=== PATIENT | female | born 1955 | race Caucasian/White ===

== ENCOUNTER 2018-06-22 01:31 | Inpatient (IN) | payer BC, OTHER ==
[2018-06-22] MEDS ORDERED: Ondansetron HCl/PF 4 MG/2 ML Vial ONE (01:51)
[2018-06-22] MEDS ORDERED: Morphine 4 MG/ML VIAL ONE ×2 (01:51→15:39)
[2018-06-22] MEDS ORDERED: Dextrose 50% Abboject 50 ML SYRINGE SLOW IVP PRN (02:30)
[2018-06-22] MEDS ORDERED: Ondansetron HCl/PF 4 MG/2 ML Vial IVP PRN ×2 (02:30→19:19)
[2018-06-22] MEDS ORDERED: Ondansetron ODT 4 MG TAB PO PRN (02:30)
[2018-06-22] MEDS ORDERED: Dextrose 5% in Water 1,000 ML IV PRN (02:30)
[2018-06-22 02:57] LABS: #Eosinphils 0.1 thou/uL (0.0-0.7); #Lymphocytes 1.7 thou/uL (1.20-3.40); #Monocytes 0.4 thou/uL (0.11-0.59); #Neutrophils 7.3 thou/uL (1.40-6.50); %Basophils 0.3 % (0.0-1.0); %Eosinophils 1.1 % (0.0-10.0); %Lymphocytes 17.4 % (21.0-51.0); %Neutrophils 77.1 % (42.0-75.0); Hemoglobin 13.9 g/dL (12.0-16.0); Mean Corpuscular HGB CONC 32.5 g/dL (32.0-36.0); Mean Corpuscular Hemoglobin 32.6 pg (27.0-31.0); Mean Platelet Volume 7.5 fL (7.4-10.4); Platelet Count 302 thou/uL (130-400); RBC Distribution Width 12.6 % (11.5-14.5); Red Blood Cell (RBC) Count 4.25 mill/uL (4.20-5.40); White Blood Cell (WBC) Count 9.5 thou/uL (4.8-10.8)
[2018-06-22 02:59] LABS: PTT 34.3 SEC (22.9-36.1); Prothrombin Time 12.8 SEC (12.0-14.7)
[2018-06-22] MEDS ORDERED: traMADol HCl 50 MG TAB PO SCH (03:00)
[2018-06-22] MEDS ORDERED: Acetaminophen 500 MG TAB PO SCH (03:00)
[2018-06-22 03:11] LABS: ALT (SGPT) 13 U/L (8-55); AST (SGOT) 16 U/L (5-34); Albumin 4.3 g/dL (3.4-4.8); Alkaline Phosphatase 59 U/L (40-150); Anion Gap 13 mmol/L (10-20); BUN (Urea Nitrogen) 10 mg/dL (9.8-20.1); Bilirubin, Total 0.3 mg/dL (0.2-1.2); Calc. Creatinine Clearance 0 mL/min (70-130); Calcium 9.4 mg/dL (7.8-10.44); Carbon Dioxide 23 mmol/L (23-31); Chloride 110 mmol/L (98-107); Estimated GFR-MDRD 74; Globulin 2.9 g/dL (2.4-3.5); Glucose 110 mg/dL (80-115); Protein, Total 7.2 g/dL (6.0-8.3); Sodium 142 mmol/L (136-145)
[2018-06-22 03:15] LABS: CKMB 1.8 ng/mL (0-6.6); Troponin I Less than 0.010 ng/mL (< 0.028)
[2018-06-22 04:58] VITALS: BMI 27.3
[2018-06-22] MEDS: Sodium Chloride 0.9% 1,000 ML IV SCH ×3 (05:07→20:44)
[2018-06-22] MEDS: Acetaminophen 500 MG TAB PO SCH ×4 (05:07→23:07)
[2018-06-22] MEDS: traMADol HCl 50 MG TAB PO SCH ×4 (05:07→23:07)
--- NOTE | 2018-06-22 07:04 | HP ---
DATE OF ADMISSION: 06/22/2018 ATTENDING PHYSICIAN: Dr. Patel. TRAUMA ACTIVATION: Not applicable. HISTORY OF PRESENT ILLNESS: Ms. Lexi Ruggiero is a 63-year-old female with past medical history of cor onary artery disease who presented to [facility] status post mechanical fall. Per patient, she wa s taking groceries in and out of the house when she slipped and fell on a ramp sliding down the ramp, twisting her left ankle and landing on her left side. She had immediate onset of left ankle deformi ty and pain. She was evaluated in the emergency room and found to have an isolated left ankle fractu re. The patient denies head trauma or loss of consciousness. She denies pain anywhere else. Orthop edic surgery has been notified and Trauma Services was asked to admit. Upon my evaluation, the patie nt has a chief complaint of left lower extremity pain. Pain is worsened with movement and relieved w ith pain medication and rest. ALLERGIES: The patient denies. HOME MEDICATIONS: Synthroid 75 mcg, aspirin 81 mg. PAST MEDICAL HISTORY: Hypothyroidism, coronary artery disease. PAST SURGICAL HISTORY: Status post cardiac catheterization in the 80s. SOCIAL HISTORY: Patient works for [employer]. She denies alcohol use. She is a half pack to 3/4 pack per day smoker x40 years. Denies illicit drug use. FAMILY HISTORY: Significant for mother with diabetes and a father with coronary artery disease and h ypertension. REVIEW OF SYSTEMS: Ten point review of systems was performed and negative except as indicated in the HPI. PHYSICAL EXAMINATION: VITAL SIGNS: On presentation, temperature 98.9, pulse 72, respirations 22, O2 sat 98% on room air, b lood pressure 143/68. GENERAL: Well-developed female, in no acute distress. HEAD: Normocephalic, atraumatic. EYES: Pupils are PERRLA. Extraocular movements are intact. ENT: Poor dentition. NECK: Supple. Trachea is midline. There is no midline tenderness to palpation. CHEST: Atraumatic, nontender to palpation. Normal work of breathing, symmetric rise. LUNGS: Clear to auscultation bilaterally. CARDIOVASCULAR: Regular rate and rhythm. GASTROINTESTINAL: Abdomen is atraumatic, soft, nontender, nondistended. MUSCULOSKELETAL: Pelvis is stable. EXTREMITIES: Bilateral upper extremities within normal limits. Right lower extremity within normal limits. Left lower extremity with obvious ecchymosis of the left ankle and swelling. Range of motio n is limited secondary to pain. She is neurovascularly intact distal to the side of her injury. NEUROLOGIC: GCS is 15. No focal deficit is noted. LABORATORY DATA: Pending. IMAGING: EKG pending. Chest x-ray with coarse interstitial markings with no obvious traumatic injur y. X-ray of the tibia and fibula, this demonstrates a distal tibia and fibula fracture, official candido d is pending. X-ray of the ankle demonstrates the same. Official read is pending. ASSESSMENT: 1. Status post mechanical fall. 2. Left ankle fracture. 3. Acute traumatic pain. 4. History of hypothyroidism. 5. History of coronary artery disease. PLAN: Follow up laboratory findings and EKG. Orthopedic Surgery has been notified and plans for ope rative intervention later this morning. Gentle IV fluid hydration. The patient should be n.p.o. Po stoperative PT. Perioperative pain management with p.o. and IV analgesics. DVT and gastritis prophy laxis when appropriate. Plan for admission were discussed with the patient and family at bedside and all questions were answered at the time of this dictation. Trauma attending has been notified of ad mission.
--- NOTE | 2018-06-22 08:00 | CON ---
DATE OF CONSULTATION: 06/22/2018 REQUESTING PHYSICIAN: Trauma Services CONSULTING PHYSICIAN: Gibson Dawn M.D. CHIEF COMPLAINT: Left ankle fracture. HISTORY OF PRESENT ILLNESS: Ms. Ruggiero is a 63-year-old female who presented to [facility] after a mechanical fall last night. Per the patient, she was taking groceries in and out of her house when she slipped and fell on a ramp, sliding down the ramp twisting her left ankle and landing on her left side. She reports immediate left ankle deformity and pain. She denies any other injuries at the time of her fall. No head injury or loss of consciousness. She was evaluated in [facility] emergency department and found to have an isolated left bimalleolar ankle fracture. We have been c onsulted for this reason. Currently, at bedside, the patient reports a throbbing pain in her left an kle. She denies any pain elsewhere. She denies any numbness or tingling. She also denies any histo ry of orthopedic surgery to this extremity. Her pain is worsened with change in position. She is cu rrently in a splint. The pain is relieved with pain medication. ALLERGIES: Patient denies any allergies. PAST MEDICAL HISTORY: Hypothyroidism and viral cardiomyopathy with coronary artery disease. PAST SURGICAL HISTORY: Status post cardiac catheterization in the . SOCIAL HISTORY: The patient works for [employer]. She lives at home in [place]. She l zarina with her . She denies any alcohol use. She is a half a pack per day smoker for the last 40 years. She denies illicit drug use. FAMILY HISTORY: Reviewed and noncontributory. REVIEW OF SYSTEMS: Ten point review of systems conducted and otherwise negative except for as stated above. PHYSICAL EXAMINATION: VITAL SIGNS: Temperature 98.8, pulse of 80, respiratory rate of 16, blood pressure 120/69. GENERAL: The patient is awake and alert. She is oriented x3. No acute distress. Family at bedside . She is pleasant and cooperative with exam today. HEENT: Head is normocephalic, atraumatic. NECK: Supple. Trachea is midline. Breathing is nonlabored. EXTREMITIES: The left lower extremity was examined. There is a stirrup splint present. The patient is able to move toes. Capillary refill 2 seconds. Sensation intact. Skin is free of lesions and r ashes at splint edges. No other injuries noted to the remainder of the extremity exam. LABORATORY AND X-RAY FINDINGS: Including CBC shows a white blood cell count of 9.5, hemoglobin of 13 .3, hematocrit 42.6, platelet count 302. Radiographic findings including 3 views of the left ankle show evidence of a bimalleolar ankle fractu re. Mortise appears maintained. These x-ray findings were reviewed by myself. ASSESSMENT: Left ankle bimalleolar ankle fracture. PLAN: At this point plan of care discussed with the patient and her family at bedside today. This i ncludes open reduction internal fixation of the left ankle in order to restore mobility and function of her left lower extremity. Risks, benefits, and alternatives of surgery were discussed at length w ith the patient. They are amenable to surgery and would like to go forward with this. The patient w ill be seen by Cardiology prior to surgery due to the patient's cardiac history. We will plan to pro ceed with surgery this afternoon. The patient is n.p.o.
--- NOTE | 2018-06-22 08:01 | RAD ---
PORTABLE CHEST 1 VIEW: DATE: 06/22/18. TIME: 2:07 a.m. HISTORY: Preoperative evaluation. FINDINGS: The heart size is normal. The lungs are expanded without focal areas of consolidation, pneumothorace s, or pleural effusions. IMPRESSION: No acute process. POS: [facility]
[2018-06-22] MEDS: Famotidine 20 MG TAB PO SCH ×2 (08:35→20:43)
[2018-06-22] MEDS: Polyethylene Glycol 3350 17 GM Packet PO SCH (08:40)
[2018-06-22] MEDS: Senokot S 8.6-50 MG TAB PO SCH ×2 (08:40→20:44)
--- NOTE | 2018-06-22 08:46 | RAD ---
TWO VIEWS LEFT ANKLE: HISTORY: Fall. Pain. COMPARISON: None. FINDINGS: Distal fibula fracture. There also appears to be a medial malleolus/distal medial tibia fracture. T here is associated subluxation of the tibiotalar articulation. IMPRESSION: Fracture. POS: [facility]
--- NOTE | 2018-06-22 08:56 | RAD ---
LEFT ANKLE 3 VIEWS: Date: 06/22/18 HISTORY: 63-year-old female with left ankle fracture following splint material placement. FINDINGS: Medial and lateral malleolar fractures are noted through splint material. There is persistent asymmet ry of the tibiotalar joint and ankle mortise with widening of the tibiotalar space medially relative to laterally. IMPRESSION: Minimally displaced bimalleolar fractures. Abnormal widening of the medial tibiotalar joint, evidence for some persistent malalignment of the ankle mortise/tibiotalar joint. POS: OFF
--- NOTE | 2018-06-22 09:04 | RAD ---
LEFT TIBIA FIBULA 2 VIWS: HISTORY: Trauma. Pain. COMPARISON: None. FINDINGS: Distal fibula fracture is noted. Evaluation of the distal fibula is limited on this exam. IMPRESSION: Distal fibula fracture. POS: JE[facility]
[2018-06-22] MEDS ORDERED: Ketorolac Tromethamine 30 MG/ML VIAL IVP SCH ×2 (09:45→12:00)
[2018-06-22] MEDS ORDERED: PROPOFOL 200 MG/20 ML VIAL ONE (10:47)
[2018-06-22] MEDS ORDERED: PHENYLEPHRINE-NS 100 MCG/ML 10 ML SYRINGE ONE (10:47)
[2018-06-22] MEDS ORDERED: ePHEDrine/0.9% NaCl/PF SYRINGE 50 mg/10 ml ONE (10:47)
--- NOTE | 2018-06-22 12:55 | PRG ---
DATE OF SERVICE: 06/22/2018 CONSULTANTS: Orthopedic Surgery admitted to Trauma Surgery. SUBJECTIVE: Ms. Ruggiero presented overnight with a trimalleolar fracture from a fall. She was noted to have a remote history of some form of cardiac disease that is not well defined in the 1980s, therefore troponins were checked and negative. An echocardiogram was obtained this morning shows an EF of 50-55% with a diastolic dysfunction 1-3. She does have a left bundle branch block noted on EKG and we do not have any previous for comparison in our system. The patient is awaiting surgery. She is n.p.o. She is on pain medicine regimen. OBJECTIVE: VITAL SIGNS: Blood pressure 107/64, respirations are 16, temperature is 97.9, pulse is 56. She is breathing 16 times per minute and is on room air 93%. GENERAL: This is a 63-year-old female sitting up in bed in no acute distress. HEENT: Normocephalic, atraumatic. NECK: Trachea is midline. RESPIRATORY: No respiratory distress. CARDIOVASCULAR: Strong pulses. EXTREMITIES: She does have something noted to her left lower extremity. ABDOMEN: No abdominal pain is reported. PSYCHIATRIC: Normal mood and affect. MUSCULOSKELETAL: She has a deformity and pain to the left lower with something in place. She is able to move the distal extremities. NEURO: Otherwise, alert and oriented to person, place, time, and event. ASSESSMENT AND PLAN: 1. Left trimalleolar fracture. 2. Left bundle branch block, unknown new or old. 3. Grade I diastolic dysfunction. PLAN: 1. The patient is n.p.o. for operative management by Orthopedic Surgery today. 2. Reassess after surgery. 3. Pain control as needed. 4. Bowel regimen per protocol. 5. Diet will be n.p.o. until after surgery. 6. Activity: Nonweightbearing on the left lower. 7. Access for peripheral IVs. 8. Prophylaxis. Will be Pepcid, SCDs on the right. Hold chemical DVT prophylaxis secondary to operative procedure today. 9. Full code. 10. Disposition: Surgery raygoza. 11. Updated the patient at the bedside and answered all questions. This plan was developed with Dr. Zepeda and can be updated as needed. [facility]
[2018-06-22] MEDS ORDERED: CEFAZOLIN/Water 2 GM/20 ML SYRINGE ONE (16:27)
[2018-06-22] MEDS ORDERED: Bupivacaine PF 0.5% 30 ML VIAL ONE (16:33)
[2018-06-22] MEDS ORDERED: Neomycin-Polymyxin 1 ML AMP ONE (16:33)
[2018-06-22] MEDS ORDERED: Midazolam HCl 2 mg/2 ml Vial ONE (16:40)
[2018-06-22] MEDS ORDERED: Fentanyl 100 MCG/2 ML VIAL ONE (16:40)
[2018-06-22] MEDS: Ketorolac Tromethamine 30 MG/ML VIAL IVP SCH ×2 (17:45→20:42)
[2018-06-22] MEDS ORDERED: HYDROmorphone 2 MG/ML VIAL ONE (18:35)
--- NOTE | 2018-06-22 18:48 | RAD ---
THREE VIEWS OF THE LEFT ANKLE: 06/22/18 COMPARISON: 06/22/18 at 3:04 a.m. HISTORY: ORIF of ankle fracture. FINDINGS/IMPRESSION: Three limited intraoperative fluoroscopic views of the left ankle were submitted for interpretation. The patient is status post ORIF of the distal fibula with a plate and screws and of the tibia with a plate and screws. No perihardware lucency is seen. Alignment of the ankle mortise is normal. POS: [facility]
[2018-06-22] MEDS ORDERED: Promethazine HCl 25 MG/ML VIAL SLOW IVP PRN (19:19)
[2018-06-22] MEDS ORDERED: HYDROmorphone 2 MG/ML VIAL SLOW IVP PRN (19:19)
[2018-06-22] MEDS ORDERED: Promethazine HCl 25 MG/ML VIAL IM PRN (19:19)
[2018-06-23] MEDS: traMADol HCl 50 MG TAB PO PRN ×2 (00:33→10:22)
[2018-06-23] MEDS: CEFAZOLIN/Water 2 GM/20 ML SYRINGE SLOW IVP SCH ×2 (00:34→09:46)
[2018-06-23] MEDS: Ketorolac Tromethamine 30 MG/ML VIAL IVP SCH ×3 (03:50→15:05)
[2018-06-23] MEDS: Acetaminophen 500 MG TAB PO SCH ×2 (05:27→15:08)
[2018-06-23] MEDS: traMADol HCl 50 MG TAB PO SCH ×2 (05:27→15:07)
[2018-06-23] MEDS: Sodium Chloride 0.9% 1,000 ML IV SCH (05:28)
[2018-06-23] MEDS: Famotidine 20 MG TAB PO SCH (09:45)
[2018-06-23] MEDS: Senokot S 8.6-50 MG TAB PO SCH (09:46)
[2018-06-23] MEDS: Polyethylene Glycol 3350 17 GM Packet PO SCH (09:46)
--- NOTE | 2018-06-23 10:58 | OP ---
DATE OF PROCEDURE: 06/22/2018 PREOPERATIVE DIAGNOSIS: Left trimalleolar ankle fracture, closed. POSTOPERATIVE DIAGNOSIS: Left trimalleolar ankle fracture, closed. SURGICAL PROCEDURE: Open reduction with internal fixation of left medial and lateral malleoli. ANESTHESIA: General. SURGEON: Favian Chopra M.D. PATCH SETTER: Armand Lopez PA-C. TOURNIQUET TIME: Approximately 60 minutes at 300 mmHg. IMPLANTS: Synthes 2.7 mm variable angle LCP distal fibular plate, 7-hole left and a Synthes 3.5 mm h ook plate for the left medial malleolus. COMPLICATIONS: None. DRAINS: None. SPECIMEN: None. OUTCOME: Near anatomic alignment. INDICATIONS: Ms. Ruggiero is a 63-year-old lady who while bringing groceries into her house, slipped a nd fell on a ramp sustaining a twisting injury to left ankle. Upon arrival at [facility], she was fo und to have a trimalleolar ankle fracture. She was found to have very modest swelling and as such wa s admitted after splinting for anticipated open reduction internal fixation for this unstable and dis placed fracture. Informed consent has been obtained. I believe all questions have been answered. PROCEDURE: After the induction of general anesthesia, a timeout was performed followed by a sterile prep and drape of the left lower extremity. Next, the limb was exsanguinated with Esmarch bandage, t ourniquet inflated to 300 mmHg. A longitudinal incision was made from the tip of the lateral malleol us proximally. After skin was sharply incised, dissection was carried down bluntly exposing the late ral cortex of the distal fibula. She was found to have a very comminuted fracture with a fracture li ne extending proximally into the distal fibular diaphysis. This proximal fracture extension was firs t stabilized with 2 K-wires and then minimal soft tissue dissection was performed to expose the fract ure edges and the more distal fragments were reduced and held provisionally with K-wires. Next, a to chepe of 3 anterior to posterior lag screws were passed to get provisional stabilization of the fractur e. This was followed by application of a 7-hole 2.7 mm variable angle LCP distal fibular plate as a buttress device along the lateral cortex of the distal fibula. This was held in place with a combina tion of 2.7 mm cortical screws proximally and locking screws distally. Once the fibula was stabilize d and reduced, AP, lateral C-arm images showed acceptable alignment of the fracture. Next, attention was placed at the medial side of the ankle. A longitudinal incision was made starting at the tip of the medial malleolus and heading proximally. The fracture was then exposed. This was found to be a comminuted fracture that had a very oblique orientation and as such it was felt that 2 medial screws alone would not adequately stabilize the fracture. As such, a 3.5 mm hook plate was placed starting at the tip of the medial malleolus. This was held provisionally with a 3.5 mm cortical screw transv ersely across the tibia and then a 3.5 mm screw passed from the tip of the hook plate obliquely acros s the fracture line into the distal tibial metaphysis. This resulted in excellent compression across the fracture line. An additional proximal screw was then placed, getting good stabilization of the medial malleolus. AP lateral C-arm images were then obtained and saved and then both incisions irrig ated with bulb syringe and then closed in layers with 0 Vicryl deep, followed by 2-0 Vicryl and stapl es. A Xeroform gauze, Webril, and fiberglass posterior splint was applied to the ankle. Tourniquet was let down and then patient was transferred to recovery room in stable condition. There were no co mplications. She tolerated the procedure well.
[2018-06-23 12:32] VITALS: TEMP 98.6
[2018-06-23 13:21] VITALS: BP 95/60
--- NOTE | 2018-06-23 14:50 | DIS ---
DATE OF ADMISSION: 06/22/2018 DATE OF DISCHARGE: 06/23/2018 ADMITTING PHYSICIAN: Dr. Victorino Tubbs. DISCHARGE PHYSICIAN: Dr. Zepeda. CONSULTING PHYSICIANS: Dr. Chopra with Orthopedic Surgery and Dr. Zepeda with Trauma Surgery. PROCEDURES: ORIF of a left trimalleolar fracture. ADMITTING DIAGNOSIS: Left trimalleolar fracture. DISCHARGE DIAGNOSIS: Left trimalleolar fracture. DISCHARGE MEDICATIONS: 1. Continue levothyroxine at the home dose. 2. Aspirin 81 mg b.i.d. 3. Tramadol 50 mg q.6 as needed for pain. 4. Tylenol 650-1000 g q.4 as needed for pain. 5. Ibuprofen 600 mg q.6 as needed for pain. HOSPITAL COURSE: Ms. Ruggiero sustained a mechanical fall resulting in the left trimalleolar fracture. She was admitted to the Trauma Service on the surgical raygoza with stable vital signs and neurologica lly intact. Orthopedic surgery was consulted and recommended ORIF. On hospital day number 1, the pa artur was taken to the operative suite. She had an effective repair. [facility] On hospital day number 1, overnight did experience some pain. She was requiring some IV pain medication and even at one time required 2 liters of oxygen nasal cannula, possibly due to the pain meds. She does have a history of smoking, but no pulmonary disease in the past. She has normal ADLs. The patient remained stable. She is ready for discharge per Orthopedics and herself. She wa s started on oral pain medication and tolerated well. She is on a nasal cannula with no distress, no respiratory distress and SpO2 is 97%. The patient is tolerating a diet. She is working with PT and she has support at home. The patient will be sent home with outpatient referral to PT. She is nonw eightbearing on the leg and this is explained to the patient. I have encouraged smoking cessation. I have explained that aspirin to be taken b.i.d. to reduce the thromboembolic events and the patient and family both verbalized understanding. OBJECTIVE: On the date of discharge, VITAL SIGNS: Temperature is 98.6, pulse is 75, respiratory rate is 14, O2 sat is 96 on room air and blood pressure 95/58. GENERAL: This is a 63-year-old female sitting up in bed, in no acute distress. HEENT: Normocephalic, atraumatic. Trachea is midline. NECK: No JVD is appreciated. RESPIRATORY: Equal rise and fall. No respiratory distress is appreciated. CARDIOVASCULAR: Regular rate and rhythm and strong pulses noted. She does have sensation in the lef t lower extremity distal to her injury that is in a cast. ABDOMEN: Soft and nontender. EXTREMITIES: Able to move all of her extremities and the only deformity is noted in the cast that is elevated. SKIN: [place], warm and dry. PSYCHIATRIC: Normal mood and affect. NEUROLOGIC: Alert and oriented to person, place, time and event. No gross deficits are appreciated. DISPOSITION: Discharging to home. FOLLOWUP: Will be with Dr. Chopra in 7-10 days and her primary care physician in 7-10 days. DISCHARGE INSTRUCTIONS: Medications as above and specifically aspirin for DVT prophylaxis. I have discussed return precautions with the patient. She has verbalized understanding. She states that she does feel ready for discharge and feels safe to go home. I have coordinated care with the O rthopedic team, the trauma team at the bedside RNs. I have answered all questions with the patient a t the bedside. Greater than 30 minutes was taken in preparation and documentation of this patient's discharge.
--- NOTE | 2018-07-01 12:18 | EKG ---
Test Reason : Blood Pressure : / mmHG Vent. Rate : 066 BPM Atrial Rate : 066 BPM P-R Int : 154 ms QRS Dur : 138 ms QT Int : 472 ms P-R-T Axes : 063 037 070 degrees QTc Int : 494 ms Normal sinus rhythm Left bundle branch block Abnormal ECG Confirmed by SREE CARPENTER ([id number]), sound editor YOHANA ROWLAND ([id number]) on 07/01/2018 12:17:59 PM Referred By: JAYDEN Confirmed By:SREE CARPENTER
== END 2018-06-23 15:50 | disposition home or self-care (01) | DRG 494 ==
LOC: ERS 01:31 → SURG A 02:14
PROVIDERS: ADMIT Surgery; ATTEND Surgery
PROC: 0QSH04Z Reposition Left Tibia with Internal Fixation Device, Open Approach (ICD-10-PCS; principal; 2018-06-22)
PROC: 0QSK04Z Reposition Left Fibula with Internal Fixation Device, Open Approach (ICD-10-PCS; 2018-06-22)
DX: S82.852A Displaced trimalleolar fracture of left lower leg, initial encounter for closed fracture (principal); I25.10 Atherosclerotic heart disease of native coronary artery without angina pectoris; E03.9 Hypothyroidism, unspecified; F17.210 Nicotine dependence, cigarettes, uncomplicated; I44.7 Left bundle-branch block, unspecified; Z79.82 Long term (current) use of aspirin; W01.0XXA Fall on same level from slipping, tripping and stumbling without subsequent striking against object, initial encounter; Y92.008 Other place in unspecified non-institutional (private) residence as the place of occurrence of the external cause
CPT/HCPCS: 36415; 71045; 76001; 80053; 82553; 84484; 85025; 85610; 85730; 90471; 90732; 93005; 93306; C1713; G0009; G8978-GP-CL; G8979-GP-CJ; G8987-GO-CJ; G8988-GO-CI; J1170; J1885; J2250; J2270; J2405; J2704; J3010; S0020

== ENCOUNTER 2018-11-15 07:36 | Outpatient (CLI) | payer BC, OTHER ==
[2018-11-15] MEDS ORDERED: Sodium Chloride 0.9% 15 ML NEB ONE (09:00)
--- NOTE | 2018-11-15 13:13 | HP ---
HISTORY OF PRESENT ILLNESS: Ms. Lexi Ruggiero is a very pleasant 63-year-old referred to the Wound Center for evaluation of a nonhealing surgical wound of the left lateral lower leg subsequent to ORIF of the left medial and lateral malleoli on 06/22/2018, by Dr. Chopra. The patient states that when the titi were discontinued, the presence of a nonhealing surgical wound was noted. The patient states that she has been dressing her wound with a dry bandage. She states that her wound was debrided by Dr. Chopra yesterday and at this time, Ms. Ruggiero was referred to the Wound Center for further evaluation and treatment. The patient's wound was debrided in the office by Dr. Chopra. The patient states she has not received any antibiotics for the treatment of her wound. The patient was referred to the Wound Center for possible treatment with the wound VAC. PAST MEDICAL HISTORY: 1. Hypothyroidism. 2. History of viral cardiomyopathy. PAST SURGICAL HISTORY: 1. ORIF of left medial and lateral malleoli on 06/22/2018. 2. Appendectomy. 3. Oophorectomy. MEDICATIONS: 1. Levothyroxine. 2. Aspirin 81 mg. 3. Tylenol p.r.n. 4. Multivitamin. ALLERGIES: LATEX. SOCIAL HISTORY: Social history is significant for tobacco use of 1 pack of cigarettes per day for 50 years. The patient denies any history of EtOH use. FAMILY HISTORY: Family history is significant for diabetes mellitus. The patient states that her mother and sister were both diagnosed with diabetes mellitus. Family history is also significant for coronary artery disease. The patient's father was diagnosed with coronary artery disease. PHYSICAL EXAMINATION: VITAL SIGNS: Temperature 97.7, pulse 75, and blood pressure 143/65. GENERAL: A 63-year-old female, sitting on chair in examination room, in no acute distress. HEENT: Normocephalic and atraumatic. NECK: No nuchal rigidity. CHEST: Clear to auscultation. CV: Regular rate and rhythm. ABDOMEN: Soft. EXTREMITIES: Two nonhealing surgical wounds of the left lateral lower leg are present. Hardware is exposed within the margins of the inferior nonhealing surgical wound. No granulation tissue was visible within the margins of either wound. No purulent drainage is associated with either wound. No erythema of the skin surrounding either wound is present. No maceration of the skin of the periwound of either wound is noted. A dorsalis pedis pulse is palpable on the left. No significant edema of the left foot or lower leg is appreciated on exam today. NEURO: Grossly nonfocal. ASSESSMENT AND PLAN: 1. Two nonhealing surgical wounds of left lateral lower leg subsequent to open reduction and internal fixation of left medial and lateral malleoli. Arrangements will be made for the initiation of negative pressure therapy with dressing changes of the wound VAC 3 times per week with the assistance of Home Health. I will see Ms. Ruggiero again in 1 week until the wound VAC becomes available, the patient is to perform dressing changes of Xeroform gauze, 4 x 4's, and Kerlix on a daily basis after cleansing and irrigation. No antibiotics will be prescribed today based upon the appearance of the wound. The patient understands and is in agreement with the preceding treatment plan. 2. Hypothyroidism. 3. History of viral cardiomyopathy. Job ID: [id number]
== END 2018-11-15 07:37 | disposition home or self-care (01) ==
LOC: WCC 07:36
PROVIDERS: ATTEND Family Medicine
DX: T81.89XA Other complications of procedures, not elsewhere classified, initial encounter (principal); E03.9 Hypothyroidism, unspecified; Z98.890 Other specified postprocedural states; Z86.79 Personal history of other diseases of the circulatory system
CPT/HCPCS: 97602; 99203; A4218; G0463

== ENCOUNTER 2018-11-22 08:38 | Outpatient (CLI) | payer BC, OTHER ==
--- NOTE | 2018-11-22 09:47 | PRG ---
DATE OF SERVICE: 11/22/2018 HISTORY: Ms. Lexi Ruggiero is a very pleasant 63-year-old referred to the Wound Center for evaluation of a nonhealing surgical wound of the left lateral lower leg subsequent to ORIF of the left medial and lateral malleoli on 06/22/[address] Chopra. The patient stated that when the titi were discontinued, the presence of a nonhealing surgical wound was noted. The patient stated that she had been dressing her wound with a dry bandage prior to being seen in the Wound Center. She stated that one day prior to her initial presentation to the Wound Center, her wound was debrided by Dr. Chopra and at this time, the patient was referred to the Wound Center for further evaluation and treatment. The patient stated that her wound was debrided in the office by Dr. Chopra. PHYSICAL EXAMINATION: VITAL SIGNS: Temperature 98.2, pulse 78, respirations 21, blood pressure 127/59. EXTREMITIES: Two nonhealing surgical wounds of the left lateral lower leg are present. No granulation tissue is visible within the margins of either wound. No purulent drainage is associated with either wound. No erythema of the skin surrounding either wound is present. No maceration of the skin of the periwound of either wound is noted. A dorsalis pedis pulse is palpable on the left. No significant edema of the left foot or lower leg is present on exam today. ASSESSMENT AND PLAN: 1. Two nonhealing surgical wounds of left lateral lower leg subsequent to open reduction and internal fixation of left medial and lateral malleoli. Negative pressure therapy will be initiated today with dressing changes of the wound VAC 3 times per week with the assistance of Home Health. I will see Ms. Ruggiero again in approximately 2 weeks. 2. Hypothyroidism. 3. History of viral cardiomyopathy. Job ID: [id number]
[2018-11-22] MEDS ORDERED: Sodium Chloride 0.9% 15 ML NEB ONE (15:56)
[2018-11-22] MEDS ORDERED: Lidocaine 2% PF 100 mg/5 ml Syringe ONE (15:56)
== END 2018-11-22 08:39 | disposition home or self-care (01) ==
LOC: WCC 08:38
PROVIDERS: ATTEND Family Medicine
DX: T81.89XD Other complications of procedures, not elsewhere classified, subsequent encounter (principal); E03.9 Hypothyroidism, unspecified; Z86.19 Personal history of other infectious and parasitic diseases
CPT/HCPCS: 97602; A4218; J2001

== ENCOUNTER 2018-12-06 10:25 | Outpatient (CLI) | payer BC, OTHER ==
--- NOTE | 2018-12-06 10:18 | PRG ---
DATE OF SERVICE: 12/06/2018 HISTORY: Ms. Lexi Ruggiero is a very pleasant 63-year-old, referred to the [facility] for evaluation of a nonhealing surgical wound of the left lateral lower leg subsequent to ORIF of the left medial and lateral malleoli on 06/22/[address] Chopra. The patient stated that when the titi were discontinued, a presence of a nonhealing surgical wound was noted. The patient stated that she had been dressing her wound with a dry bandage prior to being seen in the [facility]ound Center. She stated that one day prior to her initial presentation to the [facility]ound Center, her wound was debrided by Dr. Chopra and at this time, the patient was referred to the [facility]ound Center for further evaluation and treatment. The patient stated that her wound was debrided in the office by Dr. Chopra. At the time of the patient's last visit, negative pressure therapy was initiated. The patient states she has been receiving dressing changes of the wound VAC 3 times per week with the assistance of home health. PHYSICAL EXAMINATION: VITAL SIGNS: Temperature 97.7, pulse 70, respirations 19, blood pressure 120/56. EXTREMITIES: Two nonhealing surgical wounds of the left lateral lower leg are present. Both wounds have improved in their appearance since the patient's last visit. The larger wound measures approximately 5.8 x 1.5 cm. No purulent drainage is associated with either wound. No erythema of the skin surrounding either wound is present. No maceration of the skin of the periwound of either wound is noted. No significant edema of the left foot or lower leg is present on exam today. ASSESSMENT AND PLAN: 1. Two nonhealing surgical wounds of left lateral lower leg subsequent to open reduction and internal fixation of the left medial and lateral malleoli. Negative pressure therapy will be continued with dressing changes of the wound VAC 3 times per week with the assistance of home health. I will see Ms. Ruggiero again in 4 weeks. The patient states she has an appointment with Dr. Chopra on 12/20/2018 at 9:00 a.m. 2. Hypothyroidism. 3. History of viral cardiomyopathy. Job ID: [id number]
[2018-12-06] MEDS ORDERED: Sodium Chloride 0.9% 15 ML NEB ONE (20:02)
[2018-12-06] MEDS ORDERED: Lidocaine 2% PF 100 mg/5 ml Syringe ONE (20:02)
== END 2018-12-06 10:26 | disposition home or self-care (01) ==
LOC: WCC 10:25
PROVIDERS: ATTEND Family Medicine
DX: T81.89XD Other complications of procedures, not elsewhere classified, subsequent encounter (principal); E03.9 Hypothyroidism, unspecified; Z86.79 Personal history of other diseases of the circulatory system
CPT/HCPCS: A4218; J2001

== ENCOUNTER 2018-12-22 05:48 | Day surgery (SDC) | payer BC, OTHER ==
[2018-12-21 11:08] VITALS: BMI 24.2
[2018-12-22] MEDS ORDERED: Midazolam HCl 2 mg/2 ml Vial ONE (06:12)
[2018-12-22] MEDS ORDERED: Fentanyl 100 MCG/2 ML VIAL ONE (06:12)
[2018-12-22] MEDS ORDERED: Lidocaine 1% (PF) 30 ML VIAL ONE (07:07)
--- NOTE | 2018-12-22 08:56 | RAD ---
LEFT ANKLE TWO VIEWS: INDICATIONS: Intraoperative imaging, left ankle hardware. TECHNIQUE: A single AP fluoroscopic view taken in the OR is presented. FINDINGS/IMPRESSION: This single AP view shows plate and screws transfixing the distal tibia along its medial side. There are three screws seen in the distal fibula. POS: [facility]
--- NOTE | 2018-12-22 09:11 | OP ---
DATE OF PROCEDURE: 12/22/2018 PREOPERATIVE DIAGNOSIS: Left lateral wound dehiscence, status post open reduction and internal fixation of bimalleolar ankle fracture. POSTOPERATIVE DIAGNOSIS: Left lateral wound dehiscence, status post open reduction and internal fixation of bimalleolar ankle fracture. PROCEDURES PERFORMED: 1. Removal of hardware (deep), left lateral ankle. 2. Irrigation and debridement of left ankle wound. 3. Application of wound VAC. ANESTHESIA: General. TOURNIQUET TIME: 15 minutes at 300 mmHg. SPECIMEN: Explanted plate and screws discarded. COMPLICATIONS: None. DRAINS: Wound VAC x1. OUTCOME: Removal of hardware with application of wound VAC. INDICATIONS: Ms. Ruggiero is a 63-year-old lady, status post significant bimalleolar ankle fracture treated with open reduction and internal fixation. The patient does have a long history of cigarette smoking as well. Unfortunately in the postoperative period, she did have a wound dehiscence. We attempted to treat this with a wound VAC, however, on the most recent dressing change, she was found to have some exposed hardware. Given this new finding, we are now proceeding with hardware removal and re-application of wound VAC. Informed consent has been obtained. I believe all questions were answered. DESCRIPTION OF PROCEDURE: The patient was brought to the operating room and a time-out performed followed by induction of general anesthesia. Leg was then exsanguinated with Esmarch bandage, tourniquet inflated to 300 mmHg. Following the previous scar, a sharp incision was made through the skin all the way down to the level of the plate, taking care to minimize any undermining of the intact skin. Once incision was made, periosteal elevator was used to elevate the soft tissue off the plate. Next, all of the screws were removed from the plate and the plate was removed without difficulty. At this point, a debridement of the skin edges were performed with a scalpel removing some of the fibrinous exudate trying to get tissue back to bleeding tissue. Some loose tissue from around the plate were also excised. The care was taken not to completely remove the periosteum from the distal fibula in hopes that it would be a base for granulation tissue formation. Once the devitalized tissue was sharply debrided, the wound was thoroughly irrigated with normal saline using Pulsavac and 3 L of normal saline and then a wound VAC was applied. At the completion of wound VAC application, the patient was transferred to recovery room in stable condition. There were no complications. She tolerated the procedure well. Job ID: [id number]
[2018-12-22] MEDS ORDERED: PHENYLEPHRINE-NS 100 MCG/ML 10 ML SYRINGE ONE (16:58)
[2018-12-22] MEDS ORDERED: Ondansetron PF 4 MG/2 ML Vial ONE (16:58)
[2018-12-22] MEDS ORDERED: Dexamethasone 20 MG/5 ML VIAL ONE (16:58)
[2018-12-22] MEDS ORDERED: PROPOFOL 200 MG/20 ML VIAL ONE (16:58)
[2018-12-22] MEDS ORDERED: Lidocaine 1% PF 5 ML VIAL ONE (16:58)
== END 2018-12-22 11:20 | disposition home or self-care (01) ==
LOC: SDC 05:48
PROVIDERS: ATTEND Orthopaedic Surgery
PROC: 0SPG04Z Removal of Internal Fixation Device from Left Ankle Joint, Open Approach (ICD-10-PCS; principal; 2018-12-22)
DX: T81.31XA Disruption of external operation (surgical) wound, not elsewhere classified, initial encounter (principal); F17.210 Nicotine dependence, cigarettes, uncomplicated; I10 Essential (primary) hypertension; Z79.82 Long term (current) use of aspirin; Z79.899 Other long term (current) drug therapy; Z91.040 Latex allergy status; Z98.890 Other specified postprocedural states
CPT/HCPCS: 76000; J1100; J2001; J2250; J2405; J2704; J3010

== ENCOUNTER 2019-01-03 11:02 | Outpatient (CLI) | payer BC, OTHER ==
--- NOTE | 2019-01-03 10:24 | PRG ---
DATE OF SERVICE: 01/03/2019 SUBJECTIVE: Ms. Lexi Ruggiero is a very pleasant 63-year-old, referred to the [facility]ound Center for evaluation of a nonhealing surgical wound of the left lateral lower leg subsequent to ORIF of the left medial and lateral malleoli on 06/22/[address] Chopra. Since the patient's last visit, Ms. Ruggiero states that she has undergone the removal of all hardware consisting of a plate and screws removed from the left lower leg. The patient continues to receive negative pressure therapy with dressing changes of the wound VAC three times per week with the assistance of Home Health. OBJECTIVE: VITAL SIGNS: Temperature 97.6, pulse 82, blood pressure 119/57. EXTREMITIES: One wound of the left lateral lower leg is present, which measures approximately 11.2 x 2.2 cm. Granulation tissue is present within the wound margins. Nonviable tissue present within the wound margins was debrided with an excisional full-thickness debridement with the use of a curette. No purulent drainage is associated with the wound. No erythema of the skin surrounding the wound is present. No maceration of the skin of the periwound is noted. A dorsalis pedis pulse is easily palpable on the left. No significant edema of the left foot or lower leg is present on exam today. ASSESSMENT AND PLAN: 1. Nonhealing surgical wound of left lateral lower leg subsequent to open reduction and internal fixation of the left medial and lateral malleoli. As stated above, all hardware has been removed from the left lateral lower leg. Negative pressure therapy will be continued with dressing changes of the wound VAC three times per week with the assistance of Home Health. The patient has an appointment with Dr. Chopra in the near future. I will see Ms. Ruggiero again in 2 to 3 weeks. 2. Hypothyroidism. 3. History of viral cardiomyopathy. Job ID: [id number]
[~2019-01-03 11:02] MED LIST: Sodium Chloride 0.9% 15 ML NEB ONE
== END 2019-01-03 11:03 | disposition home or self-care (01) ==
LOC: WCC 11:02
PROVIDERS: ATTEND Family Medicine
DX: T81.89XD Other complications of procedures, not elsewhere classified, subsequent encounter (principal); E03.9 Hypothyroidism, unspecified
CPT/HCPCS: 11042; 11045; A4218